=== PATIENT | female | born 1965 | race Two or more races ===

== ENCOUNTER 2017-01-18 07:02 | Day surgery (SDC) | payer BC ==
[2017-01-18] VITALS (14 sets, daily range): BP systolic 100–126; BP diastolic 61–77; PULSE 68–79; RESP 13–23; Ht 154.9 cm; Wt 100.0 kg
[~2017-01-18] VITALS: Ht 154.9 cm; Wt 100.0 kg
[~2017-01-18 07:02] MED LIST: CEFAZOLIN 1 GM INJ ONE
[2017-01-18] MEDS ORDERED: AMLO-147 PO (08:25)
[2017-01-18] MEDS ORDERED: ATOR40TA68 PO (08:25)
[2017-01-18] MEDS ORDERED: HYDR12.53 PO (08:25)
[2017-01-18] MEDS ORDERED: LOSA50TA6 PO (08:25)
[2017-01-18] MEDS ORDERED: IBUP200C PO (08:25)
--- NOTE | 2017-01-18 08:43 | RADRPT ---
PROCEDURE: XR Chest 1 View. CLINICAL INDICATION: Abnormal breath sounds, preop. TECHNIQUE: AP view of the chest was obtained. COMPARISON: None. FINDINGS: The cardiomediastinal silhouette is within normal limits. The lungs are hyperexpanded. No consolidat ions are identified. No pneumothorax is seen. Osseous structures are intact. IMPRESSION: Hyperexpanded, clear lungs. RPTAT: AA .Brad Sánchez MD, MD Date Time Electronically viewed and signed by .Brad Sánchez MD, MD on 01/18/2017 08:43 .P/
--- NOTE | 2017-01-18 09:16 | HPN ---
Date/Time of Note Date/Time of Note DATE: 01/18/17 TIME: 09:15 Interval H&P Admission Note Pt. seen H&P reviewed: No system changes CHELA MONTERO MD Jan 18, 2017 09:16
[2017-01-18] MEDS ORDERED: PROPOFOL 20 ML ONE ×3 (09:23→09:25)
[2017-01-18] MEDS ORDERED: DEXAMETHASONE 4 MG/ML 1 ML INJ ONE (09:24)
[2017-01-18] MEDS ORDERED: FENTAnyl 50 MCG/ML VIAL ONE (09:24)
[2017-01-18] MEDS ORDERED: ONDANSETRON 4 MG INJ ONE (09:24)
[2017-01-18] MEDS ORDERED: MIDAZOLAM 1 MG/ML 2 ML INJ ONE (09:24)
[2017-01-18] MEDS ORDERED: EPHEDrine SULFATE 50 MG/5 ML SYG IV PRN (10:00)
[2017-01-18] MEDS ORDERED: ONDANSETRON 4 MG INJ IV PRN (10:00)
[2017-01-18] MEDS ORDERED: DIPHENHYDRAMINE 50 MG INJ IV PRN (10:00)
[2017-01-18] MEDS ORDERED: HYDROmorphONE (0.2 MG/ML) 10ML SYG IV PRN ×3 (10:00)
[2017-01-18] MEDS ORDERED: MEPERIDINE 25 MG INJ IV PRN (10:00)
--- NOTE | 2017-01-18 18:11 | OPR ---
DATE OF OPERATION: 01/18/2017 PREOPERATIVE DIAGNOSIS: Uterine fibroid and abnormal uterine bleeding. POSTOPERATIVE DIAGNOSIS: Uterine fibroid and abnormal uterine bleeding. See pathological report. OPERATION PERFORMED: Fractional dilatation and curettage. ANESTHESIA: General. SURGEON: Bernard Tatum MD ANESTHESIOLOGIST: Rajesh Gallardo MD PROCEDURE: Under appropriate induction of general anesthesia, the patient was placed in dorsal lith otomy position. Perineal area and vaginal wall were prepped and draped in usual aseptic manner. On inspection, external genitalia revealed no gross abnormality except the visible rectocele noted. B imanual examination: Uterus approximately 8 weeks of gestational size and form in consistency. The re is a first degree of uterine prolapse noted. Weighted speculum was introduced, cervix identified which was very small, and there is a prolapsed uterus noted with rectocele first degree, and the en docervical curettage was performed with obtaining of mucus and then small scanty tissue which was ob tained. The cavity was 8.5 cm and os dilated enough to submit the small curet, which was inserted. Entire uterine cavity was curetted in all directions with obtaining a small amount of tissue which was sent to pathology. During the curettage, there was a posterior aspect and left lateral fundal a diane minor irregularity noted. No significant other irregularity noted. The procedure was completed . All the instruments were removed from the operative field. The patient withstood well, sent to [facility] recovery room in stable condition. Dictated By: BERNARD BARBA/DOMINIC Conf#: [id number] DID#: [id number]
== END 2017-01-18 13:08 | disposition home or self-care (01) ==
LOC: SDS 07:02 → EDBD 09:00 → SDS 13:08
PROVIDERS: ATTEND Obstetrics & Gynecology
DX: N93.9 Abnormal uterine and vaginal bleeding, unspecified (principal); I10 Essential (primary) hypertension; E66.01 Morbid (severe) obesity due to excess calories; Z68.41 Body mass index [BMI] 40.0-44.9, adult
CPT/HCPCS: 58120; 71010; 84703; 88305; J0690; J1100; J2250; J2405; J3010; Z7512; Z7610